=== PATIENT | female | born 1945 | race Caucasian/White ===

== ENCOUNTER → 2017-01-01 08:00 | Day surgery (SDC) | payer BC ==
[~2017-01-01 08:00] MED LIST: Atracurium* 10 MG/ML 10 ML VIAL ONE; Buffered Lidocaine 1% SYRIN* 3 ML/SYR SYRINGE INTRADERM ONE; Bupivacaine 0.25% EPI 200,000* 30 ML SDV ONE; Dexamethasone TAB* 4 MG ONE; Dexamethasone TAB* 4 MG PO ONE; DiMENhydriNATE IV* 50 MG/ML VIAL IV PUSH PRN; EPHEDrine (Pressors)* 50 MG/ML VIAL ONE; EPINEPHrine AMP 1 MG/ML ONE; Famotidine IV* 10 MG/ML 2 ML (20 mg) IV ONE; Famotidine IV* 10 MG/ML 2 ML (20 mg) ONE; Glycopyrrolate IV* 0.2 MG/ML 1 ML VIAL ONE; HYDROmorphone* 1 MG/ML 1 ML SYR IV PRN; Ketorolac INJ* 30 MG/ML 1 ML VIAL ONE; Midazolam* 1 MG/ML 5 ML VIAL (5 MG) ONE; Ondansetron INJ* 2 MG/ML VIAL IV PRN; Ondansetron INJ* 2 MG/ML VIAL ONE; Propofol* 10 MG/ML 20 ML BTL IV PUSH ONE; ROPIVACAINE 5 MG/ML 30 ML BTL (0.5%) ONE; ceFAZolin 2 GM PREMIX(*) 2 GM/50 ML BAG IVPB ONE; fentaNYL* 50 MCG/ML 2 ML VIAL (100 MCG VIAL) IV PRN; fentaNYL* 50 MCG/ML 2 ML VIAL (100 MCG VIAL) ONE
--- NOTE | 2017-01-01 13:21 | OP ---
DATE OF OPERATION: 01/01/2017 - [facility] DATE OF : 1945. SURGEON: Dr. Russell Mann. ENVIRONMENTAL PROJECTS ADVISOR: More Velasquez RPA. ANESTHESIOLOGIST: Austin Bryant MD ANESTHESIA: Regional and general. PRE-OP DIAGNOSIS: Large chronic right rotator cuff tear. POST-OP DIAGNOSIS: Large chronic right rotator cuff tear. OPERATIVE PROCEDURE: Right shoulder arthroscopy, decompression, debridement and rotator cuff repair. ESTIMATED BLOOD LOSS: Minimal. COMPLICATIONS: None. SUMMARY: Ms. Flores is a 71-year-old female who I met several years ago with a left rotator cuff tear. She under-went an arthroscopic repair and had done well. This past summer she had tripped and fallen and had troubles bringing the arm up and over her head. She initially was seen elsewhere and they had discussed doing a reverse shoulder arthroplasty. She was a bit taken aback by this and had set up an appointment in my office. I discussed with her we could definitely try a shoulder arthroscopy and rotator cuff repair; and ,if that was not possible, we would have material available to do a superior capsular reconstruction. Unfortunately, with the reconstruction, overhead function would be difficult to predict, but it should work well to decrease her pain and left her be more functional with the arm. Other risks of surgery, such as infection, scar formation, and stiffness were some of the other risks discussed. She had been declared medically optimized and wished to proceed. DESCRIPTION OF PROCEDURE: The patient was brought to the OR and a scalene block was placed. General endo-tracheal anesthesia was then established. She was then sat up in the beach chair position and care was taken to make sure that her left arm was nicely padded on the arm board. The right shoulder area was prepped and then draped. Portal sites were preinjected using 0.25 percent Marcaine with Epinephrine and a standard posterior portal was made first using an 11 blade. Blunt trocar at the sheath was easily introduced into the shoulder and a camera was introduced into the sheath. Shoulder was allowed in insufflate and pulling back glenohumeral joint was nicely visualized. Rotator cuff tear and fraying along the labrum was immediate evident. Using an outside- in technique, anterior portal was established and shaver was introduced. This was used to gently debride the labrum, all from about the 2 o'clock to 10 o' clock position, as well as the edge of the rotator cuff tear. With grasping the cuff, I could bring this forward and it appeared like I might be able to get a nice repair. Lateral portal was made and spatula was then used to separate the cuff from the top side of the glenoid and this gave a little bit more motion to the rotator cuff. Coming above the rotator cuff tear, bursa was taken down and was not very inflamed at all. Bur was used just to gently take down a little bit of the underside of the acromion, but I was not very aggressive with this. Edge of the humerus at the greater tuberosity was then gently debrided using the shaver as well, but I was very careful not to take any cortical bone. 3.5 mm anchor with a #2 fiber wire was then seated and beginning from the more posterior aspect coming around towards the anterior aspect, anchors were placed, passed through the rotator cuff and sewn down. With a fourth anchor, this seemed to close the glenohumeral joint quite nicely and coming back inside, it can be seen where the stitches were and the rotator cuff was sewn now over. It appeared that a good repair was obtained. Final pictures were taken. All instrumentation was removed and the portal sites were closed using 4-0 Nylon sutures. Sterile dressing, sling and Cryo/Cuff were all applied in the OR. The patient was then extubated in the OR and was stable on transfer to the recovery room. DISPOSITION/DISCHARGE SUMMARY: Ms. Flores is a 71-year-old female who just underwent a right shoulder arthroscopy and rotator cuff repair. She tolerated the procedure well and there were no complications. She is currently rolling towards the recovery room. When she wakes up a little bit more from her general anesthesia, can tolerate p.o.'s, her pain well-controlled, and can void , she will be discharged home. Prescription for Percocet will be e-scribed in. She has instructions to keep her dressing clean, dry, and intact for the next three days, but after that may take her dressing down, cover sutures with band- aids, may shower, wash and get it wet but should not soak it. I would like to see her in the office in seven to ten days, remove her sutures, and make sure she is doing well. If there are any problems or anything odd should occur, the instruction is to give the office a call. [id number]/[facility] #: [id number] EMELIA
[2017-01-01 14:44] VITALS: BP 133/69
== END | disposition home or self-care (01) ==
LOC: OR 08:00
PROVIDERS: ATTEND Orthopaedic Surgery
DX: S46.011A Strain of muscle(s) and tendon(s) of the rotator cuff of right shoulder, initial encounter (principal); W19.XXXA Unspecified fall, initial encounter; I10 Essential (primary) hypertension; Z79.82 Long term (current) use of aspirin
CPT/HCPCS: A9270-GY; J0171; J0690; J1885; J2250; J2405; J2704; J2795; J3010